=== PATIENT | male | born 1950 | race Caucasian/White ===

== ENCOUNTER 2019-08-15 06:00 | Outpatient (RCR) | payer MEDICARE, OTHER, SELFPAY | END 2019-09-10 00:01 | LOC: LAB 06:00 | PROVIDERS: Family Provider Nurse Practitioner Family; Visit Provider Family Medicine | DX: E11.8 Type 2 diabetes mellitus with unspecified complications (principal) | CPT/HCPCS: 36415; 80048; 83036; 85025 ==

== ENCOUNTER 2020-05-01 16:46 | Emergency (ER) | payer MEDICARE, OTHER, MEDICAID, SELFPAY ==
[2020-05-01 16:51] VITALS: BP 154/92; PULSE 70; RESP 17; TEMP 36.6; O2SAT 95; BMI 36.4
--- NOTE | 2020-05-01 16:56 | ECG_ITS ---
[facility] Test Date: 2020-05-01 Pat Name: Jesse Paul Department: Room: Gender: Male [employer]: : 1950 Requested By: Marlin Fried Order Number: [id number] Boogie MD: Omar Marvin M.D. Measurements Intervals Wesley Rate: 66 P: 43 NJ: 159 QRS: -6 QRSD: 104 T: 72 QT: 423 QTc: 446 Interpretive Statements SINUS RHYTHM WITH OCCASIONAL SUPRAVENTRICULAR PREMATURE COMPLEXES POSSIBLE RIGHT VENTRICULAR CONDUCTION DELAY [RSR (QR) IN V1/V2] No previous ECG available for comparison Electronically Signed On 05-02-2020 19:33:23 CDT by Omar Marvin M.D. [email or web address]
[2020-05-01 17:07] LABS: Basophils % 0.3 %; Eosinophils # 0.1 10^3/uL (0.0-0.8); Eosinophils % 1.5 %; Hemoglobin 13.6 g/dL (11.7-16.6); Lymphocytes # 1.9 10^3/uL (0.8-4.8); Lymphocytes % 30.1 %; Mean Corpuscular HGB Conc 33.2 g/dL (30.0-36.0); Mean Corpuscular Hemoglobin 28.6 pg (28.0-34.0); Mean Corpuscular Volume 86.1 fL (80-94); Mean Platelet Volume 10.6 fL (7.4-10.4); Monocytes # 0.9 10^3/uL (0.2-0.9); Monocytes % 13.9 %; Neutrophils # 3.32 10^3/uL (1.8-7.7); Neutrophils % 53.9 %; Nucleated Red Blood Cells % 0 %; Platelet Count 142 10^3/cmm (130-400); Red Blood Count 4.76 10^6/uL (4.1-5.3); Red Cell Distribution Width 12.8 % (12.1-15.1); White Blood Count 6.2 10^3/uL (4.0-10.0)
[2020-05-01 17:20] VITALS: BP 157/83; PULSE 62; RESP 17; O2SAT 94
[2020-05-01 17:42] LABS: Acetaminophen < 5.0 ug/mL (10-30); Alcohol Level < 10 mg/dL (0-10); Salicylate < 0.3 mg/dL (3-10)
[2020-05-01 17:45] LABS: Alanine Aminotransferase 10 U/L (0-41); Albumin Level 3.9 g/dL (3.5-5.2); Alkaline Phosphatase 118 IU/L (40-130); Anion Gap 13.3 (5-19); Aspartate Amino Transferase 14 U/L (0-40); Blood Urea Nitrogen 13 mg/dL (8-23); Carbon Dioxide 27 mmol/L (22-29); Chloride 103 mmol/L (98-107); Creatinine Clr Calc Pharmacy 105.9627; Free T4 Free Thyroxine 1.02 ng/dL (0.82-1.77); Globulin 2.1 g/dL (1.3-4.6); Glomerular Filtration Rate 83.9 mL/min (90-130); Glucose 181 mg/dL (65-115); Magnesium 1.8 mg/dL (1.7-2.3); Osmolality Calculated 289 mOsm/kg (285-295); Potassium 4.3 mmol/L (3.5-5.1); Sodium 139 mmol/L (136-145); Thyroid Stimulating Hormone 2.38 uIU/mL (0.27-4.20); Total Bilirubin 0.3 mg/dL (0.15-1.2); Valproic Acid Level 2.8 ug/mL (50-100)
--- NOTE | 2020-05-01 17:54 | W.ED.MEDCLER ---
Documented by User: Marlin Howard 05/01/20 22:59 HPI - Medical Clearance General Chief complaint: Medical Clearance Stated complaint: PSYCH EVAL Time Seen by Provider: 05/01/20 16:48 Source: patient and EMS Mode of arrival: EMS Limitations: language barrier History of Present Illness HPI Narrative: Mr. Paul is a 69-year-old male sent here for medical clearance and [facility] psychiatric placement. He was sent from [facility] with a report of intermittent violent outburst. Patient's not suicidal but admits that sometimes he gets agitated and angry. This time he has no complaints. Related Information Allergies Allergy/AdvReac Type Severity Reaction Status Date / Time No Known Allergies Allergy Verified 05/01/20 17:01 Course Course Arrival -patient is not homicidal or suicidal but admits he wants help with his violent outburst. He will need a [facility] psychiatric placement due to his medical comorbidities. Currently the patient is alert and oriented, no acute distress. HEENT he is normocephalic and atraumatic pupils are equal round and reactive to light, extract muscles are intact bilaterally mucous membranes are pink and moist neck is supple. Cardiovascular heart sounds are S1-S2 without murmur rub gallop click or thrill. Abdomen soft nontender without rebound, guarding or rigidity. Musculoskeletal no sinus clubbing edema neurologically he was alert per his baseline. Currently all information is being sent to [facility] in [place] for consideration for geriatric psychiatric placement Vital Signs Temperature 97.9 F 05/01/20 16:51 Pulse Rate 51 L 05/02/20 05:48 Respiratory Rate 16 05/02/20 05:48 Blood Pressure 170/100 05/02/20 05:48 Pulse Oximetry 96 05/02/20 05:48 [facility] - Medical Clearance Medical Records Attestation: I reviewed the patient's medical records. Lab Data Attestation: I reviewed the patient's lab results. Result diagrams: 05/01/20 16:30 05/01/20 16:30 Labs: Lab Results 05/01/20 05/01/20 05/01/20 Range/Units 16:30 16:30 16:30 WBC 6.2 (4.0-10.0) 10^3/uL RBC 4.76 (4.1-5.3) 10^6/uL Hgb 13.6 (11.7-16.6) g/dL Hct 41.0 L (42.0-52.0) % MCV 86.1 (80-94) fL MCH 28.6 (28.0-34.0) pg MCHC 33.2 (30.0-36.0) g/dL RDW 12.8 (12.1-15.1) % Plt Count 142 (130-400) 10^3/cmm MPV 10.6 H (7.4-10.4) fL Neut % (Auto) 53.9 % Lymph % (Auto) 30.1 % [place] % (Auto) 13.9 % Eos % (Auto) 1.5 % Baso % (Auto) 0.3 % Neut # (Auto) 3.32 (1.8-7.7) 10^3/uL Lymph # (Auto) 1.9 (0.8-4.8) 10^3/uL [place] # (Auto) 0.9 (0.2-0.9) 10^3/uL Eos # (Auto) 0.1 (0.0-0.8) 10^3/uL Baso # (Auto) 0.0 (0.0-0.1) 10^3/uL Nucleated RBC % (auto) 0 % Nucleated RBCs # 0.0 /100WBC PT 13.50 (12.1-14.9) SECONDS INR 1.00 (0.8-1.2) Sodium 139 (136-145) mmol/L Potassium 4.3 (3.5-5.1) mmol/L Chloride 103 (98-107) mmol/L Carbon Dioxide 27 (22-29) mmol/L Anion Gap 13.3 (5-19) BUN 13 (8-23) mg/dL Creatinine 0.9 (0.7-1.2) mg/dL GFR Calculation 83.9 L (90-130) mL/min Glucose 181 H (65-115) mg/dL Calculated Osmolality 289 (285-295) mOsm/kg Calcium 9.0 (8.5-10.5) mg/dL Magnesium 1.8 (1.7-2.3) mg/dL Total Bilirubin 0.3 (0.15-1.2) mg/dL AST 14 (0-40) U/L ALT 10 (0-41) U/L Alkaline Phosphatase 118 (40-130) IU/L Total Protein 6.0 L (6.6-8.7) g/dL Albumin 3.9 (3.5-5.2) g/dL Globulin 2.1 (1.3-4.6) g/dL TSH 2.38 (0.27-4.20) uIU/mL Free T4 1.02 (0.82-1.77) ng/dL Urine Color (Yellow) Urine Appearance (CLEAR) Urine pH (5-7) Ur Specific [place] (1.005-1.030) Urine Protein (Negative) Urine Glucose (UA) (Normal) Urine Ketones (Negative) Urine Blood (Negative) Urine Nitrate (Negative) Urine Bilirubin (NEGATIVE) Urine Urobilinogen (Negative) mg/dL Ur Leukocyte Esterase (Negative) Urine RBC (0-2) /hpf Urine WBC (0-5) /hpf Ur Squamous Epith Cells (0-5) Amorphous Sediment Urine Bacteria (NONE) Urine Mucus Salicylates (3-10) mg/dL Acetaminophen (10-30) ug/mL Phenytoin (10-20) ug/mL Valproic Acid 2.8 L (50-100) ug/mL Carbamazepine (4.0-12.0) ug/mL [place] (0.6-1.2) mmol/L Ethyl Alcohol (0-10) mg/dL SARS-CoV-2 Ag (Rapid) (Negative) 05/01/20 05/01/20 05/01/20 Range/Units 16:30 17:20 17:58 WBC (4.0-10.0) 10^3/uL RBC (4.1-5.3) 10^6/uL Hgb (11.7-16.6) g/dL Hct (42.0-52.0) % MCV (80-94) fL MCH (28.0-34.0) pg MCHC (30.0-36.0) g/dL RDW (12.1-15.1) % Plt Count (130-400) 10^3/cmm MPV (7.4-10.4) fL Neut % (Auto) % Lymph % (Auto) % [place] % (Auto) % Eos % (Auto) % Baso % (Auto) % Neut # (Auto) (1.8-7.7) 10^3/uL Lymph # (Auto) (0.8-4.8) 10^3/uL [place] # (Auto) (0.2-0.9) 10^3/uL Eos # (Auto) (0.0-0.8) 10^3/uL Baso # (Auto) (0.0-0.1) 10^3/uL Nucleated RBC % (auto) % Nucleated RBCs # /100WBC PT (12.1-14.9) SECONDS INR (0.8-1.2) Sodium (136-145) mmol/L Potassium (3.5-5.1) mmol/L Chloride (98-107) mmol/L Carbon Dioxide (22-29) mmol/L Anion Gap (5-19) BUN (8-23) mg/dL Creatinine (0.7-1.2) mg/dL GFR Calculation (90-130) mL/min Glucose (65-115) mg/dL Calculated Osmolality (285-295) mOsm/kg Calcium (8.5-10.5) mg/dL Magnesium (1.7-2.3) mg/dL Total Bilirubin (0.15-1.2) mg/dL AST (0-40) U/L ALT (0-41) U/L Alkaline Phosphatase (40-130) IU/L Total Protein (6.6-8.7) g/dL Albumin (3.5-5.2) g/dL Globulin (1.3-4.6) g/dL TSH (0.27-4.20) uIU/mL Free T4 (0.82-1.77) ng/dL Urine Color Yellow (Yellow) Urine Appearance Clear (CLEAR) Urine pH 5 (5-7) Ur Specific [place] 1.015 (1.005-1.030) Urine Protein Neg (Negative) Urine Glucose (UA) 2+ (Normal) Urine Ketones Negative (Negative) Urine Blood Neg (Negative) Urine Nitrate Negative (Negative) Urine Bilirubin Neg (NEGATIVE) Urine Urobilinogen Norm (Negative) mg/dL Ur Leukocyte Esterase Negative (Negative) Urine RBC 0-4 H (0-2) /hpf Urine WBC 0-4 H (0-5) /hpf Ur Squamous Epith Cells 5-10 H (0-5) Amorphous Sediment Trace Urine Bacteria Trace (NONE) Urine Mucus 1+ Salicylates < 0.3 L (3-10) mg/dL Acetaminophen < 5.0 L (10-30) ug/mL Phenytoin 0.8 L (10-20) ug/mL Valproic Acid (50-100) ug/mL Carbamazepine 2.0 L (4.0-12.0) ug/mL [place] 0.1 L (0.6-1.2) mmol/L Ethyl Alcohol < 10 (0-10) mg/dL SARS-CoV-2 Ag (Rapid) (Negative) 05/02/20 Range/Units 00:40 WBC (4.0-10.0) 10^3/uL RBC (4.1-5.3) 10^6/uL Hgb (11.7-16.6) g/dL Hct (42.0-52.0) % MCV (80-94) fL MCH (28.0-34.0) pg MCHC (30.0-36.0) g/dL RDW (12.1-15.1) % Plt Count (130-400) 10^3/cmm MPV (7.4-10.4) fL Neut % (Auto) % Lymph % (Auto) % [place] % (Auto) % Eos % (Auto) % Baso % (Auto) % Neut # (Auto) (1.8-7.7) 10^3/uL Lymph # (Auto) (0.8-4.8) 10^3/uL [place] # (Auto) (0.2-0.9) 10^3/uL Eos # (Auto) (0.0-0.8) 10^3/uL Baso # (Auto) (0.0-0.1) 10^3/uL Nucleated RBC % (auto) % Nucleated RBCs # /100WBC PT (12.1-14.9) SECONDS INR (0.8-1.2) Sodium (136-145) mmol/L Potassium (3.5-5.1) mmol/L Chloride (98-107) mmol/L Carbon Dioxide (22-29) mmol/L Anion Gap (5-19) BUN (8-23) mg/dL Creatinine (0.7-1.2) mg/dL GFR Calculation (90-130) mL/min Glucose (65-115) mg/dL Calculated Osmolality (285-295) mOsm/kg Calcium (8.5-10.5) mg/dL Magnesium (1.7-2.3) mg/dL Total Bilirubin (0.15-1.2) mg/dL AST (0-40) U/L ALT (0-41) U/L Alkaline Phosphatase (40-130) IU/L Total Protein (6.6-8.7) g/dL Albumin (3.5-5.2) g/dL Globulin (1.3-4.6) g/dL TSH (0.27-4.20) uIU/mL Free T4 (0.82-1.77) ng/dL Urine Color (Yellow) Urine Appearance (CLEAR) Urine pH (5-7) Ur Specific [place] (1.005-1.030) Urine Protein (Negative) Urine Glucose (UA) (Normal) Urine Ketones (Negative) Urine Blood (Negative) Urine Nitrate (Negative) Urine Bilirubin (NEGATIVE) Urine Urobilinogen (Negative) mg/dL Ur Leukocyte Esterase (Negative) Urine RBC (0-2) /hpf Urine WBC (0-5) /hpf Ur Squamous Epith Cells (0-5) Amorphous Sediment Urine Bacteria (NONE) Urine Mucus Salicylates (3-10) mg/dL Acetaminophen (10-30) ug/mL Phenytoin (10-20) ug/mL Valproic Acid (50-100) ug/mL Carbamazepine (4.0-12.0) ug/mL [place] (0.6-1.2) mmol/L Ethyl Alcohol (0-10) mg/dL SARS-CoV-2 Ag (Rapid) Negative (Negative) Documented by User: Jones Bonilla DO 05/02/20 06:42 HPI - Medical Clearance General Chief complaint: Medical Clearance Stated complaint: PSYCH EVAL Time Seen by Provider: 05/01/20 16:48 Related Information Allergies Allergy/AdvReac Type Severity Reaction Status Date / Time No Known Allergies Allergy Verified 08/21/20 17:01 Course Course 69-year-old gentleman checked out to me by Dr. Lawrence at shift change. We are still awaiting confirmation of a geriatric psychiatry bed for this patient. He remains medically stable. Bed obtained now at [facility] in [facility]. He remains medically stable. Dr. Ayon admitting. Vital Signs Temperature 97.9 F 05/01/20 16:51 Pulse Rate 51 L 05/02/20 05:48 Respiratory Rate 16 05/02/20 05:48 Blood Pressure 170/100 05/02/20 05:48 Pulse Oximetry 96 05/02/20 05:48 MDM - Medical Clearance Lab Data Result diagrams: 05/01/20 16:30 05/01/20 16:30 Labs: Lab Results 05/01/20 05/01/20 05/01/20 Range/Units 16:30 16:30 16:30 WBC 6.2 (4.0-10.0) 10^3/uL RBC 4.76 (4.1-5.3) 10^6/uL Hgb 13.6 (11.7-16.6) g/dL Hct 41.0 L (42.0-52.0) % MCV 86.1 (80-94) fL MCH 28.6 (28.0-34.0) pg MCHC 33.2 (30.0-36.0) g/dL RDW 12.8 (12.1-15.1) % Plt Count 142 (130-400) 10^3/cmm MPV 10.6 H (7.4-10.4) fL Neut % (Auto) 53.9 % Lymph % (Auto) 30.1 % [place] % (Auto) 13.9 % Eos % (Auto) 1.5 % Baso % (Auto) 0.3 % Neut # (Auto) 3.32 (1.8-7.7) 10^3/uL Lymph # (Auto) 1.9 (0.8-4.8) 10^3/uL [place] # (Auto) 0.9 (0.2-0.9) 10^3/uL Eos # (Auto) 0.1 (0.0-0.8) 10^3/uL Baso # (Auto) 0.0 (0.0-0.1) 10^3/uL Nucleated RBC % (auto) 0 % Nucleated RBCs # 0.0 /100WBC PT 13.50 (12.1-14.9) SECONDS INR 1.00 (0.8-1.2) Sodium 139 (136-145) mmol/L Potassium 4.3 (3.5-5.1) mmol/L Chloride 103 (98-107) mmol/L Carbon Dioxide 27 (22-29) mmol/L Anion Gap 13.3 (5-19) BUN 13 (8-23) mg/dL Creatinine 0.9 (0.7-1.2) mg/dL GFR Calculation 83.9 L (90-130) mL/min Glucose 181 H (65-115) mg/dL Calculated Osmolality 289 (285-295) mOsm/kg Calcium 9.0 (8.5-10.5) mg/dL Magnesium 1.8 (1.7-2.3) mg/dL Total Bilirubin 0.3 (0.15-1.2) mg/dL AST 14 (0-40) U/L ALT 10 (0-41) U/L Alkaline Phosphatase 118 (40-130) IU/L Total Protein 6.0 L (6.6-8.7) g/dL Albumin 3.9 (3.5-5.2) g/dL Globulin 2.1 (1.3-4.6) g/dL TSH 2.38 (0.27-4.20) uIU/mL Free T4 1.02 (0.82-1.77) ng/dL Urine Color (Yellow) Urine Appearance (CLEAR) Urine pH (5-7) Ur Specific [place] (1.005-1.030) Urine Protein (Negative) Urine Glucose (UA) (Normal) Urine Ketones (Negative) Urine Blood (Negative) Urine Nitrate (Negative) Urine Bilirubin (NEGATIVE) Urine Urobilinogen (Negative) mg/dL Ur Leukocyte Esterase (Negative) Urine RBC (0-2) /hpf Urine WBC (0-5) /hpf Ur Squamous Epith Cells (0-5) Amorphous Sediment Urine Bacteria (NONE) Urine Mucus Salicylates (3-10) mg/dL Acetaminophen (10-30) ug/mL Phenytoin (10-20) ug/mL Valproic Acid 2.8 L (50-100) ug/mL Carbamazepine (4.0-12.0) ug/mL [place] (0.6-1.2) mmol/L Ethyl Alcohol (0-10) mg/dL SARS-CoV-2 Ag (Rapid) (Negative) 05/01/20 05/01/20 05/01/20 Range/Units 16:30 17:20 17:58 WBC (4.0-10.0) 10^3/uL RBC (4.1-5.3) 10^6/uL Hgb (11.7-16.6) g/dL Hct (42.0-52.0) % MCV (80-94) fL MCH (28.0-34.0) pg MCHC (30.0-36.0) g/dL RDW (12.1-15.1) % Plt Count (130-400) 10^3/cmm MPV (7.4-10.4) fL Neut % (Auto) % Lymph % (Auto) % [place] % (Auto) % Eos % (Auto) % Baso % (Auto) % Neut # (Auto) (1.8-7.7) 10^3/uL Lymph # (Auto) (0.8-4.8) 10^3/uL [place] # (Auto) (0.2-0.9) 10^3/uL Eos # (Auto) (0.0-0.8) 10^3/uL Baso # (Auto) (0.0-0.1) 10^3/uL Nucleated RBC % (auto) % Nucleated RBCs # /100WBC PT (12.1-14.9) SECONDS INR (0.8-1.2) Sodium (136-145) mmol/L Potassium (3.5-5.1) mmol/L Chloride (98-107) mmol/L Carbon Dioxide (22-29) mmol/L Anion Gap (5-19) BUN (8-23) mg/dL Creatinine (0.7-1.2) mg/dL GFR Calculation (90-130) mL/min Glucose (65-115) mg/dL Calculated Osmolality (285-295) mOsm/kg Calcium (8.5-10.5) mg/dL Magnesium (1.7-2.3) mg/dL Total Bilirubin (0.15-1.2) mg/dL AST (0-40) U/L ALT (0-41) U/L Alkaline Phosphatase (40-130) IU/L Total Protein (6.6-8.7) g/dL Albumin (3.5-5.2) g/dL Globulin (1.3-4.6) g/dL TSH (0.27-4.20) uIU/mL Free T4 (0.82-1.77) ng/dL Urine Color Yellow (Yellow) Urine Appearance Clear (CLEAR) Urine pH 5 (5-7) Ur Specific [place] 1.015 (1.005-1.030) Urine Protein Neg (Negative) Urine Glucose (UA) 2+ (Normal) Urine Ketones Negative (Negative) Urine Blood Neg (Negative) Urine Nitrate Negative (Negative) Urine Bilirubin Neg (NEGATIVE) Urine Urobilinogen Norm (Negative) mg/dL Ur Leukocyte Esterase Negative (Negative) Urine RBC 0-4 H (0-2) /hpf Urine WBC 0-4 H (0-5) /hpf Ur Squamous Epith Cells 5-10 H (0-5) Amorphous Sediment Trace Urine Bacteria Trace (NONE) Urine Mucus 1+ Salicylates < 0.3 L (3-10) mg/dL Acetaminophen < 5.0 L (10-30) ug/mL Phenytoin 0.8 L (10-20) ug/mL Valproic Acid (50-100) ug/mL Carbamazepine 2.0 L (4.0-12.0) ug/mL [place] 0.1 L (0.6-1.2) mmol/L Ethyl Alcohol < 10 (0-10) mg/dL SARS-CoV-2 Ag (Rapid) (Negative) 05/02/20 Range/Units 00:40 WBC (4.0-10.0) 10^3/uL RBC (4.1-5.3) 10^6/uL Hgb (11.7-16.6) g/dL Hct (42.0-52.0) % MCV (80-94) fL MCH (28.0-34.0) pg MCHC (30.0-36.0) g/dL RDW (12.1-15.1) % Plt Count (130-400) 10^3/cmm MPV (7.4-10.4) fL Neut % (Auto) % Lymph % (Auto) % [place] % (Auto) % Eos % (Auto) % Baso % (Auto) % Neut # (Auto) (1.8-7.7) 10^3/uL Lymph # (Auto) (0.8-4.8) 10^3/uL [place] # (Auto) (0.2-0.9) 10^3/uL Eos # (Auto) (0.0-0.8) 10^3/uL Baso # (Auto) (0.0-0.1) 10^3/uL Nucleated RBC % (auto) % Nucleated RBCs # /100WBC PT (12.1-14.9) SECONDS INR (0.8-1.2) Sodium (136-145) mmol/L Potassium (3.5-5.1) mmol/L Chloride (98-107) mmol/L Carbon Dioxide (22-29) mmol/L Anion Gap (5-19) BUN (8-23) mg/dL Creatinine (0.7-1.2) mg/dL GFR Calculation (90-130) mL/min Glucose (65-115) mg/dL Calculated Osmolality (285-295) mOsm/kg Calcium (8.5-10.5) mg/dL Magnesium (1.7-2.3) mg/dL Total Bilirubin (0.15-1.2) mg/dL AST (0-40) U/L ALT (0-41) U/L Alkaline Phosphatase (40-130) IU/L Total Protein (6.6-8.7) g/dL Albumin (3.5-5.2) g/dL Globulin (1.3-4.6) g/dL TSH (0.27-4.20) uIU/mL Free T4 (0.82-1.77) ng/dL Urine Color (Yellow) Urine Appearance (CLEAR) Urine pH (5-7) Ur Specific [place] (1.005-1.030) Urine Protein (Negative) Urine Glucose (UA) (Normal) Urine Ketones (Negative) Urine Blood (Negative) Urine Nitrate (Negative) Urine Bilirubin (NEGATIVE) Urine Urobilinogen (Negative) mg/dL Ur Leukocyte Esterase (Negative) Urine RBC (0-2) /hpf Urine WBC (0-5) /hpf Ur Squamous Epith Cells (0-5) Amorphous Sediment Urine Bacteria (NONE) Urine Mucus Salicylates (3-10) mg/dL Acetaminophen (10-30) ug/mL Phenytoin (10-20) ug/mL Valproic Acid (50-100) ug/mL Carbamazepine (4.0-12.0) ug/mL [place] (0.6-1.2) mmol/L Ethyl Alcohol (0-10) mg/dL SARS-CoV-2 Ag (Rapid) Negative (Negative)
[2020-05-01 17:57] LABS: Lithium 0.1 mmol/L (0.6-1.2); Phenytoin Dilantin 0.8 ug/mL (10-20)
[2020-05-01] MEDS: LORazepam 1 mg Tablet PO (18:13)
[2020-05-01 18:14] VITALS: BP 156/80; PULSE 67; RESP 16; O2SAT 96
--- NOTE | 2020-05-01 18:24 | XR_ITS ---
WS: [id number] EXAM: AP CHEST: PORTABLE UPRIGHT DATE OF EXAM: 05/01/2020, 1825 hours COMPARISON: NONE HISTORY: Patient is 69 years old with mental status changes.. FINDINGS: The cardiac silhouette is considered slightly enlarged. 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 Calcified lymph nodes left hilum. The pulmonary vascularity is normal. Calcified granulomas demonstrated in the right mid and lower lung. Lungs are clear of consolidation. There is no effusion or pneumothorax. Scattered degenerative changes in the spine. XR/XR chest 1V [id number] IMPRESSION: Slight cardiomegaly. Chronic lung changes. No acute pulmonary disease.
[2020-05-01 18:29] LABS: Bilirubin Urine Neg (NEGATIVE); Blood Urine Neg (Negative); Glucose Urine UA 2+ (Normal); Ketones Urine Negative (Negative); Leukocyte Esterase Urine Negative (Negative); Nitrate Urine Negative (Negative); Protein Urine Neg (Negative); Specific Gravity, Urine 1.015 (1.005-1.030); Urine Appearance Clear (CLEAR); Urine Color Yellow (Yellow); Urobilinogen Urine Norm (Negative); pH Urine 5 (5-7)
[2020-05-01 18:30] LABS: RBC Urine 0-4 /hpf (0-2); WBC Urine 0-4 /hpf (0-5)
[2020-05-01 18:31] LABS: Add Urine Culture? No; Amorphous Sediment Urine TRACE; Bacteria Urine TRACE; Mucus Urine 1+
[2020-05-01 23:28] VITALS: BP 142/75; PULSE 55; RESP 16; O2SAT 96
[2020-05-02 01:01] LABS: SARS Covid-2 Antigen Negative (Negative)
[2020-05-02 03:16] VITALS: BP 122/71; PULSE 63; RESP 18; O2SAT 96
--- NOTE | 2020-05-02 04:31 | PC.NURSE ---
[facility] called back and declined pt admit to there facility.
[2020-05-02 04:37] VITALS: BP 165/84; PULSE 56; RESP 18; O2SAT 97
[2020-05-02 05:48] VITALS: BP 170/100; PULSE 51; RESP 16; O2SAT 96
--- NOTE | 2020-05-02 06:30 | PC.NURSE ---
Pt is accepted at [facility] called. senior care called and report given to them.
[2020-05-02 06:40] VITALS: BP 193/89; PULSE 54; RESP 18; O2SAT 96
== END 2020-05-02 06:56 | disposition other institution (70) ==
PROVIDERS: Emergency Medicine; Emergency Provider Emergency Medicine
DX: R45.6 Violent behavior (principal); R45.4 Irritability and anger
CPT/HCPCS: 71045; 80053; 80156; 80164; 80178; 80185; 80307; 81001; 83735; 84439; 84443; 85025; 85610; 87426; 93005; 99284